=== PATIENT | male | born 1960 | race Caucasian/White ===

== ENCOUNTER 2024-05-10 13:26 | Outpatient (CLI) | payer OTHER | END 2024-05-10 13:27 | disposition home or self-care (01) | LOC: CSHULT 13:26 | PROVIDERS: ATTEND Family Medicine | DX: I63.522 Cerebral infarction due to unspecified occlusion or stenosis of left anterior cerebral artery (principal); I51.7 Cardiomegaly; I51.9 Heart disease, unspecified | CPT/HCPCS: 93306 ==